=== PATIENT | female | born 1970 | race African-American/Black ===

== ENCOUNTER 2024-08-26 15:26 | Inpatient (IN) | payer SELFPAY ==
[~2024-08-26] VITALS: Ht 165.1 cm; Wt 49.9 kg
[2024-08-26 15:28] VITALS: O2SAT 96
[2024-08-26 16:36] LABS: HEMATOCRIT. 23.8 % (36.0-48.0); MEAN CORPUSCULAR HEMOGLOBIN 23.5 pg (28.0-32.0); MEAN CORPUSCULAR HGB CONC 29.5 g/dL (31.0-37.0); MEAN CORPUSCULAR VOLUME 79.8 fL (81.0-99.0); MEAN PLATELET VOLUME 9.1 fl (7.4-10.4); PLATELET 239 x1000/uL (130-400); RED BLOOD CELL COUNT 2.99 mill/uL (4.2-5.4); RED CELL DISTRIBUTION WIDTH 21.1 % (11.6-14.6); WHITE BLOOD COUNT 11.5 x1000/uL (4.5-11.0)
[2024-08-26 16:39] LABS: DIFFERENTIAL COMMENT 1
[2024-08-26] MEDS: ONDANSETRON HCL 4MG/2ML INJ IV NR (16:41)
[2024-08-26] MEDS: SODIUM CHLORIDE 0.9% 250 ML IV ONE (16:41)
[2024-08-26] MEDS: HYDROMORPHONE HCL/PF 2MG/ML INJ IV NR ×2 (16:42→18:37)
[2024-08-26 16:43] LABS: CHLORIDE 105 mEq/L (98-107); POTASSIUM 3.9 mEq/L (3.5-5.1); SODIUM 140 mEq/L (136-145)
[2024-08-26 16:44] LABS: CARBON DIOXIDE 28 mEq/L (21-32); INR 1.1; PROTHROMBIN TIME 11.9 sec (9.6-11.0)
[2024-08-26 16:45] LABS: CALCIUM 9.2 mg/dL (8.7-10.4)
[2024-08-26 16:49] LABS: CREATININE 0.8 mg/dL (0.6-1.0); GLUCOSE 84 mg/dL (70-105)
[2024-08-26 16:50] LABS: TROPONIN I HIGH SENSITIVITY 19 ng/L (3.0-34); UREA NITROGEN BLOOD 15 mg/dL (9-23)
[2024-08-26 16:51] LABS: ALANINE AMINOTRANSFERASE 115 IU/L (10-49); ALBUMIN 3.5 g/dL (3.2-4.8); ASPARTATE AMINOTRANSFERASE 96 IU/L (<34)
[2024-08-26 16:52] LABS: BILIRUBIN DIRECT 0.1 mg/dL (<=3.0); BILIRUBIN TOTAL 0.5 mg/dL (0.1-1.0); PROTEIN TOTAL 5.9 g/dL (6.0-8.3)
[2024-08-26 17:09] LABS: ANISOCYTOSIS 2+; HYPOCHROMASIA 1+; MICROCYTOSIS 1+; PLATELET ESTIMATE NORMAL
[2024-08-26] MEDS ORDERED: NALOXONE HCL 0.4MG/ML VIAL IV PRN ×2 (18:00→22:00)
[2024-08-26] MEDS ORDERED: HYDROCODONE/ACETAMINOPHEN 10/325MG TABLET PO PRN (21:15)
[2024-08-26] MEDS ORDERED: ONDANSETRON HCL 4MG/2ML INJ IV PRN (21:15)
[2024-08-26] MEDS: MORPHINE SULFATE 2 MG/ML INJ (NOT FOR IM USE) IV PRN (22:50)
[2024-08-26 23:00] VITALS: BP 96/60; PULSE 101; RESP 18; TEMP 36.72516; O2SAT 98
[2024-08-27] MEDS ORDERED: IOHEXOL-350 100 ML BOTTLE ONE (00:09)
[2024-08-27 00:10] VITALS: BP 97/65; PULSE 107; RESP 18; TEMP 36.7516
[2024-08-27] MEDS: HYDROMORPHONE HCL/PF 2MG/ML INJ IV PRN ×2 (01:15→07:59)
[2024-08-27] MEDS: HYDROMORPHONE HCL/PF 1MG/ML INJ IV NR (03:05)
[2024-08-27 06:18] LABS: BASOPHILS % 0.2 % (0.0-2.0); DIFFERENTIAL COMMENT 0; EOSINOPHILS % 0.5 % (0.0-5.0); HEMATOCRIT. 23.5 % (36.0-48.0); LYMPHOCYTES % 11.9 % (20.0-50.0); MEAN CORPUSCULAR HEMOGLOBIN 23.6 pg (28.0-32.0); MEAN CORPUSCULAR VOLUME 81.3 fL (81.0-99.0); MONOCYTES % 9.7 % (2.0-8.0); NEUTROPHILS % 77.7 % (40.0-76.0); PLATELET 192 x1000/uL (130-400); RED BLOOD CELL COUNT 2.89 mill/uL (4.2-5.4); RED CELL DISTRIBUTION WIDTH 20.8 % (11.6-14.6); WHITE BLOOD COUNT 5.4 x1000/uL (4.5-11.0)
[2024-08-27 08:00] VITALS: BP 103/70; PULSE 98; RESP 20; TEMP 36.50292; O2SAT 96
[2024-08-27 08:09] LABS: HEMOGLOBIN. 6.8 g/dL (12.0-16.0)
[2024-08-27] MEDS: PANTOPRAZOLE SODIUM 40 MG/VIAL IV SCH (09:00)
== END 2024-08-27 14:18 | disposition left against medical advice (07) | DRG 201 ==
LOC: ER 15:26 → 5WST 19:38 → EDBEDREQ 19:40 → EDBEDREQTM 19:40 → 8WST 23:17
PROVIDERS: ADMIT Internal Medicine; ATTEND Internal Medicine
DX: I48.91 Unspecified atrial fibrillation (principal); I11.0 Hypertensive heart disease with heart failure; I50.9 Heart failure, unspecified; Z53.29 Procedure and treatment not carried out because of patient's decision for other reasons; I25.2 Old myocardial infarction; I69.30 Unspecified sequelae of cerebral infarction; Z85.038 Personal history of other malignant neoplasm of large intestine
CPT/HCPCS: 36415; 71045; 71275; 74176; 76700; 80048; 80076; 83880; 84484; 85025; 93005; 93971; 99291; J1171; J2270; J2405; Q9967